=== PATIENT | female | born 1970 | race African-American/Black ===

== ENCOUNTER → 2020-03-17 | Emergency (ER) | payer MEDICAID ==
[~2020-03-17] MED LIST: FIORICET1 EA ORAL
--- NOTE | 2020-03-17 11:42 | NUR ---
ED Nurse Note: Not in the waiting room.
--- NOTE | 2020-03-17 11:58 | NUR ---
ED Nurse Note: Still not in the waiting room.
--- NOTE | 2020-03-17 12:23 | NUR ---
ED Nurse Note: Nowhere to be found in the waiting room or hospital lobby.
== END | disposition left against medical advice (07) ==
LOC: EMR 12:34
DX: Z53.21 Procedure and treatment not carried out due to patient leaving prior to being seen by health care provider (principal)